=== PATIENT | male | born 1970 | race Caucasian/White ===

== ENCOUNTER 2020-04-08 11:52 | Inpatient (IN) | payer MEDICAID ==
[~2020-04-08] VITALS: Ht 180.3 cm; Wt 51.4 kg
[2020-04-08 13:39] LABS: BASOPHILS % (AUTO) 0.5 % (0-1); EOSINOPHILS # (AUTO) 0.1 X10'3 (0-0.9); EOSINOPHILS % (AUTO) 1.6 % (0-6); HEMATOCRIT 45.5 % (42.0-52.0); HEMOGLOBIN 15.2 g/dl (14.0-17.9); LYMPHOCYTES % (AUTO) 24.2 % (21-51); MEAN CORPUSCULAR HEMOGLOBIN 30.4 PG (27.0-31.0); MEAN CORPUSCULAR HGB CONC 33.5 g/dL (33.0-36.5); MEAN CORPUSCULAR VOLUME 90.7 FL (78-98); MEAN PLATELET VOLUME 8.3 FL (7.4-10.4); MONOCYTES # (AUTO) 0.7 X10'3 (0-0.9); MONOCYTES % (AUTO) 8.3 % (2-12); NEUTROPHILS # (AUTO) 5.5 X10'3 (1.8-7.7); NEUTROPHILS % (AUTO) 65.4 % (42-75); PLATELET COUNT 346 X10'3 (140-440); RED BLOOD COUNT 5.01 X10'6 (4.70-6.10); WHITE BLOOD COUNT 8.4 X10'3 (4.5-11.0)
[2020-04-08 13:54] LABS: ALANINE AMINOTRANSFERASE 143 U/L (12-78); ALKALINE PHOSPHATASE 231 IU/L (46-116); ANION GAP 14 (8-16); ASPARTATE AMINO TRANSFERASE 75 U/L (10-37); BILIRUBIN,TOTAL 2.3 MG/DL (0.1-1.0); BLOOD UREA NITROGEN 29 MG/DL (7-18); CALCIUM 10.1 MG/DL (8.5-10.1); CHLORIDE 100 MMOL/L (99-107); CREATININE 1.32 MG/DL (0.60-1.10); GLUCOSE 121 MG/DL (70-104); LIPASE 1322 U/L (73-393); POTASSIUM 3.5 MMOL/L (3.5-5.1); SODIUM 138 MMOL/L (135-145); TOTAL CARBON DIOXIDE 24.5 MMOL/L (24-32); TOTAL PROTEIN 8.2 G/DL (6.4-8.2); eGFR 57 ML/MIN
[2020-04-08] MEDS ORDERED: normal saline 1000ml 1,000 ML IV ONE (15:50)
[2020-04-08] MEDS ORDERED: iohexol 300mg/ml 100ml inj. ONE (16:16)
--- NOTE | 2020-04-08 16:17 | NUR ---
Per Judith, GI Lab, pt slated for scope in AM. Need PTT results. New orders received from [facility].
[2020-04-08] MEDS ORDERED: potassium Cl 20 mEq SR tablet PO PRN ×2 (16:50)
[2020-04-08] MEDS ORDERED: acetaminophen 325mg tablet PO PRN (16:50)
[2020-04-08] MEDS ORDERED: morphine 2 MG/ML inj. syringe IV PRN (16:50)
[2020-04-08] MEDS ORDERED: magnesium 2GM in 50ml NS 50 ML IV PRN (16:50)
[2020-04-08] MEDS ORDERED: potassium Cl 40MEQ/1/2NS 520ml 520 ML IV PRN (16:50)
[2020-04-08] MEDS ORDERED: magnesium 4gm in 100ml NS 100 ML IV PRN (16:50)
[2020-04-08] MEDS ORDERED: magnesium Cl slow-release 64mg tablet PO PRN (16:50)
[2020-04-08] MEDS ORDERED: ondansetron/PF 4mg/2ml inj IV PRN (16:50)
[2020-04-08] MEDS ORDERED: NO HOME MEDS (17:07)
[2020-04-08 17:09] LABS: CLARITY,URINE CLOUDY (Clear); GLUCOSE, URINE 100 mg/dl (Neg); KETONES,URINE TRACE mg/dl (Neg); LEUKOCYTE ESTERASE ,URINE NEGATIVE (Neg); NITRITES, URINE NEGATIVE (Neg); OCCULT BLOOD,URINE NEGATIVE (Neg); PH,URINE 5.5 (4.8-8.0); PROTEIN,URINE >=300 mg/dl (Neg); UROBILINOGEN,URINE >=8.0 E.U/dL (0.2-1.0)
[2020-04-08 17:16] LABS: UA COLLECTION TYPE CLN CATCH MIDSTREAM
[2020-04-08 17:17] LABS: COLOR,URINE ORANGE (Yellow)
[2020-04-08 17:18] LABS: CAL OXALATE CRYSTALS 4+ /HPF (NEGATIVE)
[2020-04-08 17:19] LABS: BACTERIA,URINE NONE SEEN /HPF (Neg); COARSE GRANULAR CAST 0-3 /LPF (NEGATIVE); MUCUS STRANDS MANY /LPF (Neg); RBC,URINE NONE SEEN /HPF (0-2); SQUAMOUS EPITHELIAL CELL,UR FEW /LPF (FEW); WBC,URINE 0-4 /HPF (0-4)
[2020-04-08 17:20] LABS: CELLULAR CAST 0-4 /LPF (NEGATIVE)
[2020-04-08 17:51] LABS: PARTIAL THROMBOPLASTIN TIME 21 SECONDS (22-32)
--- NOTE | 2020-04-08 17:54 | NUR ---
Belongings: jacket, shirt, hant, neckscarf, shoe, socks, undies, glasses, cell phone & yard clerk, [employer] laptop w/ power supply.
[2020-04-08] MEDS: normal saline 1000ml 1,000 ML IV SCH (17:57)
[2020-04-08 19:00] VITALS: BP 140/75
[2020-04-08] MEDS: K and/or MAG REPLACEMENT MC SCH (20:00)
[2020-04-09] VITALS (40 sets, daily range): BP systolic 111–146; BP diastolic 71–91
[2020-04-09] MEDS: normal saline 1000ml 1,000 ML IV SCH ×4 (02:50→19:11)
--- NOTE | 2020-04-09 06:26 | NUR ---
Problems reprioritized. Patient report given, questions answered & plan of care reviewed with Bailey BAH. Addendum: 04/09/20 at 0626 by May Chen RN Amended: Links added.
--- NOTE | 2020-04-09 06:30 | NUR ---
Patient in room [facility]. I have received report from May BAH, and had the opportunity to ask questions and assume patient care.
[2020-04-09 07:01] LABS: BASOPHILS % (AUTO) 0.4 % (0-1); EOSINOPHILS # (AUTO) 0.1 X10'3 (0-0.9); EOSINOPHILS % (AUTO) 1.9 % (0-6); HEMATOCRIT 34.6 % (42.0-52.0); HEMOGLOBIN 11.7 g/dl (14.0-17.9); LYMPHOCYTES # (AUTO) 1.9 X10'3 (1.1-4.8); LYMPHOCYTES % (AUTO) 26.2 % (21-51); MEAN CORPUSCULAR HEMOGLOBIN 30.9 PG (27.0-31.0); MEAN CORPUSCULAR HGB CONC 33.9 g/dL (33.0-36.5); MEAN CORPUSCULAR VOLUME 91.2 FL (78-98); MEAN PLATELET VOLUME 8.8 FL (7.4-10.4); MONOCYTES # (AUTO) 0.7 X10'3 (0-0.9); MONOCYTES % (AUTO) 9.4 % (2-12); NEUTROPHILS # (AUTO) 4.4 X10'3 (1.8-7.7); NEUTROPHILS % (AUTO) 62.1 % (42-75); PLATELET COUNT 261 X10'3 (140-440); RED CELL DISTRIBUTION WIDTH 13.2 % (11.5-14.5); WHITE BLOOD COUNT 7.1 X10'3 (4.5-11.0)
[2020-04-09 07:33] LABS: ALBUMIN 2.8 G/DL (3.4-5.0); ANION GAP 13 (8-16); BLOOD UREA NITROGEN 19 MG/DL (7-18); BUN/CREATININE RATIO 22.6 (5.4-32.0); CALCIUM 8.6 MG/DL (8.5-10.1); CHLORIDE 107 MMOL/L (99-107); CREATININE 0.84 MG/DL (0.60-1.10); GLUCOSE 83 MG/DL (70-104); MAGNESIUM 1.9 MG/DL (1.5-2.4); POTASSIUM 3.8 MMOL/L (3.5-5.1); SODIUM 142 MMOL/L (135-145); TOTAL CARBON DIOXIDE 21.7 MMOL/L (24-32); eGFR > 90 ML/MIN
[2020-04-09] MEDS ORDERED: MIDAZolam 5mg/5ml vial ONE (09:13)
[2020-04-09] MEDS ORDERED: LIDOcaine Viscous 15ml cup ONE (09:13)
[2020-04-09] MEDS ORDERED: fentaNYL/PF 50MCG/1 ML 2ML syringe ONE ×2 (09:13→14:58)
--- NOTE | 2020-04-09 09:30 | NUR ---
to GI lab via
--- NOTE | 2020-04-09 12:20 | NUR ---
Returned from GI lab. awake, alert, denies pain, VSS
--- NOTE | 2020-04-09 14:30 | NUR ---
To IR for pancreatic biopsy
[2020-04-09] MEDS ORDERED: midazolam 2 mg/2 ml injection ONE (14:58)
--- NOTE | 2020-04-09 15:10 | NUR ---
Malnutrition consult. Per H&P patient presented to ED for evaluation of esophageal pressure, states this has been an issue since december and has had to induce vomiting to relieve pressure. Reports weight loss. Pt is pending a biopsy. Lipase is elevated. Met with patient at beside, reports UBW between 155-160 lbs and current weight of 115 lbs, this would be a 40 lb loss in three months (-24% of body weight). Pt severely malnourished with visible fat and muscle wasting. Pt was given coupons for ensure supplement and written education handout for increasing calories for weight gain and to prevent further weight loss. Given RD contact information. Will continue to follow and provide recommendations as needed based on patient's course of care. Recommend: 1. advance diet as medically indicated, may benefit from full liquids with esophageal mass 2. When diet is advanced recommend ensure enlive 3. bowel care as needed 4. weight per rx Addendum: 04/09/20 at [address] Amended: Links added.
[2020-04-09] MEDS ORDERED: gelatin sponge, absorbable (Gelfoam 12-7MM) sponge TP ONE (16:30)
--- NOTE | 2020-04-09 17:00 | NUR ---
Returned to 354C from IR. In no distress, awake and alert. Denies pain. VSS. No bleeding from IR biopsy site.
--- NOTE | 2020-04-09 18:00 | NUR ---
Problems reprioritized. Patient report given, questions answered & plan of care reviewed with May BAH.
[2020-04-09] MEDS: pantoprazole 40 MG vial IV SCH ×2 (18:58→19:11)
[2020-04-09] MEDS: K and/or MAG REPLACEMENT MC SCH ×2 (18:59→20:00)
[2020-04-10] VITALS: BP 134/76
--- NOTE | 2020-04-10 06:20 | NUR ---
Patient in room [facility]. I have received report from May RN, and had the opportunity to ask questions and assume patient care. Pt requested pain med. Per May pt refused IV Morphine stating his pain wasn't bad enough for Morphine. Pt requests ice chips. Current order is NPO.
--- NOTE | 2020-04-10 06:36 | NUR ---
Problems reprioritized. Patient report given, questions answered & plan of care reviewed with Vandana BAH. Pt stated that he was uncomfortable and would like to try pain meds. Pt informed that he does have IV morphine available and stated that his pain is not that severe and doesn't want IV morphine. He stated that he will let us know if his pain gets worse. Addendum: 04/10/20 at 0640 by May Chen RN Amended: Links added.
[2020-04-10 06:50] LABS: ALBUMIN 2.8 G/DL (3.4-5.0); ANION GAP 14 (8-16); BASOPHILS % (AUTO) 0.6 % (0-1); BLOOD UREA NITROGEN 13 MG/DL (7-18); BUN/CREATININE RATIO 15.5 (5.4-32.0); CALCIUM 8.8 MG/DL (8.5-10.1); CHLORIDE 107 MMOL/L (99-107); CREATININE 0.84 MG/DL (0.60-1.10); EOSINOPHILS # (AUTO) 0.1 X10'3 (0-0.9); EOSINOPHILS % (AUTO) 1.6 % (0-6); GLUCOSE 61 MG/DL (70-104); HEMATOCRIT 32.5 % (42.0-52.0); HEMOGLOBIN 11.2 g/dl (14.0-17.9); LYMPHOCYTES # (AUTO) 1.4 X10'3 (1.1-4.8); LYMPHOCYTES % (AUTO) 20.6 % (21-51); MAGNESIUM 1.7 MG/DL (1.5-2.4); MEAN CORPUSCULAR HEMOGLOBIN 31.5 PG (27.0-31.0); MEAN CORPUSCULAR HGB CONC 34.4 g/dL (33.0-36.5); MEAN CORPUSCULAR VOLUME 91.8 FL (78-98); MEAN PLATELET VOLUME 8.8 FL (7.4-10.4); MONOCYTES # (AUTO) 0.6 X10'3 (0-0.9); MONOCYTES % (AUTO) 8.4 % (2-12); NEUTROPHILS # (AUTO) 4.8 X10'3 (1.8-7.7); NEUTROPHILS % (AUTO) 68.8 % (42-75); PLATELET COUNT 243 X10'3 (140-440); POTASSIUM 3.9 MMOL/L (3.5-5.1); RED BLOOD COUNT 3.54 X10'6 (4.70-6.10); RED CELL DISTRIBUTION WIDTH 12.7 % (11.5-14.5); SODIUM 141 MMOL/L (135-145); TOTAL CARBON DIOXIDE 19.6 MMOL/L (24-32); WHITE BLOOD COUNT 6.9 X10'3 (4.5-11.0); eGFR > 90 ML/MIN
[2020-04-10 07:37] VITALS: BP 110/58
[2020-04-10] MEDS: dextrose 5%-normal saline 1,000 ML IV SCH ×3 (07:50→20:19)
[2020-04-10] MEDS: K and/or MAG REPLACEMENT MC SCH ×2 (08:00→20:00)
[2020-04-10] MEDS: pantoprazole 40 MG vial IV SCH ×2 (10:14→20:00)
[2020-04-10 12:10] VITALS: BP 111/73
--- NOTE | 2020-04-10 13:31 | NUR ---
Pt submitted written permission to have his Medical Advocate/Scrap Baller/POA be his S.O. "Cindy Tovar" Pt's privacy 'code' is "Yecenia [employer] Cat". Advanced Directive packet provided to pt. Cindy asked questions while speaking to pt on his phone, phone was placed on speaker. Pt/Cindy were instructed that Clear Liquids will be provided and if pt tolerates them well he might be discharged home per Dr. Mauricio. Pathology report likely to be read next week. Cindy stated that she and the pt decided they want to be admitted to [facility]. Pt will f/u with PMD on , 04/15/2020. Pt and Cindy verbalized understanding of POC per Dr. Mauricio's bedside rounding.
--- NOTE | 2020-04-10 14:00 | NUR ---
Patient in room [facility]. I have received report from Vandana BAH and had the opportunity to ask questions and assume patient care. Addendum: 04/10/20 at 1928 by Noni Hidalgo RN Amended: Links added.
--- NOTE | 2020-04-10 14:03 | NUR ---
Pt spit up what he calls "plegm" 400cc of watery,foamy, bloody (pedrito blood) expectorate. No cough per pt. Pt states it "seems worse when I get PPI". Pt stated he "always" has the watery/foamy "phlegm" at home, but "it's bloody" since the endoscopy yesterday. OLVIN Cheney aware.
--- NOTE | 2020-04-10 14:30 | NUR ---
Pt. awake sitting up in bed looking at his cell phone. Pt. A & O and denies c/o pain at this time. Noticed frothy spit in the emesis base on the bed side table. Upon empting in the toilet, pedrito blood noted in the bottom of the emesis basin. Pt. reports noticing the condition today. No c/o coughing n/v at this time. Call light within reach. Addendum: 04/10/20 at 1933 by Noni Hidalgo RN Amended: Links added.
--- NOTE | 2020-04-10 17:00 | NUR ---
Charge nurse notified Dr. Ceja regarding the pt's spitting status; orders received for pt. to be richardson NPO until further notice from the doctor. Notified the pt. Pt. verbalized understanding. NPO sign posted. Call light in place. Addendum: 04/10/20 at 1936 by Noni Hidalgo RN Amended: Links added.
--- NOTE | 2020-04-10 18:00 | NUR ---
Problems reprioritized. Patient report given, questions answered & plan of care reviewed with Kia BAH. Addendum: 04/10/20 at 1937 by Noni Hidalgo RN Amended: Links added.
--- NOTE | 2020-04-10 18:35 | NUR ---
Patient in room [facility]. I have received report from Noni BAH and had the opportunity to ask questions and assume patient care.
[2020-04-10 19:00] VITALS: BP 129/84
--- NOTE | 2020-04-10 20:30 | NUR ---
Patient refused protonix tonight stating that 'it makes me feel nauseated every time afterwards". Advised patient that antiemetic zofran could be given to counteract the nausea, still, patient stated that he did not want to take it.
--- NOTE | 2020-04-10 21:18 | NUR ---
New order for ativan 05mg q 4hr prn anxiety obtained .
[2020-04-10] MEDS ORDERED: LORazepam 0.5 MG tablet PO PRN (21:20)
[2020-04-11 00:16] VITALS: BP 143/86
[2020-04-11] MEDS: dextrose 5%-normal saline 1,000 ML IV SCH (05:27)
--- NOTE | 2020-04-11 06:20 | NUR ---
Problems reprioritized. Patient report given, questions answered & plan of care reviewed with Jakub BAH.
--- NOTE | 2020-04-11 06:42 | NUR ---
Patient in room [facility]. I have received report from OLVIN Adam and had the opportunity to ask questions and assume patient care.
[2020-04-11 07:04] LABS: BASOPHILS % (AUTO) 0.6 % (0-1); EOSINOPHILS # (AUTO) 0.2 X10'3 (0-0.9); EOSINOPHILS % (AUTO) 2.9 % (0-6); HEMATOCRIT 30.7 % (42.0-52.0); HEMOGLOBIN 10.4 g/dl (14.0-17.9); LYMPHOCYTES # (AUTO) 1.4 X10'3 (1.1-4.8); LYMPHOCYTES % (AUTO) 23.4 % (21-51); MEAN CORPUSCULAR HEMOGLOBIN 30.8 PG (27.0-31.0); MEAN CORPUSCULAR VOLUME 90.5 FL (78-98); MEAN PLATELET VOLUME 8.6 FL (7.4-10.4); MONOCYTES # (AUTO) 0.7 X10'3 (0-0.9); MONOCYTES % (AUTO) 11.4 % (2-12); NEUTROPHILS # (AUTO) 3.8 X10'3 (1.8-7.7); NEUTROPHILS % (AUTO) 61.7 % (42-75); PLATELET COUNT 239 X10'3 (140-440); RED BLOOD COUNT 3.39 X10'6 (4.70-6.10); RED CELL DISTRIBUTION WIDTH 13.1 % (11.5-14.5); WHITE BLOOD COUNT 6.2 X10'3 (4.5-11.0)
[2020-04-11 07:20] LABS: ALBUMIN 2.5 G/DL (3.4-5.0); ANION GAP 11 (8-16); BLOOD UREA NITROGEN 6 MG/DL (7-18); BUN/CREATININE RATIO 6.7 (5.4-32.0); CALCIUM 8.6 MG/DL (8.5-10.1); CHLORIDE 107 MMOL/L (99-107); CREATININE 0.89 MG/DL (0.60-1.10); GLUCOSE 129 MG/DL (70-104); MAGNESIUM 1.6 MG/DL (1.5-2.4); SODIUM 143 MMOL/L (135-145); TOTAL CARBON DIOXIDE 25.4 MMOL/L (24-32); eGFR 90 ML/MIN
[2020-04-11] MEDS: pantoprazole 40 MG vial IV SCH ×2 (07:23→20:00)
--- NOTE | 2020-04-11 07:23 | NUR ---
Patient refuses protonix. Patient states he is aware of what protonix is for and "wishes to decline again" as it makes him too nauseated.
[2020-04-11 07:24] LABS: POTASSIUM 2.9 MMOL/L (3.5-5.1)
--- NOTE | 2020-04-11 07:30 | NUR ---
Dr. Mauricio PAGER ID: [phone] MESSAGE: nehemiah- Da Carrero- Critical K of 2.9. Will replace per protocol- Jakub [id number]
[2020-04-11 08:00] VITALS: BP 130/71
[2020-04-11] MEDS: K and/or MAG REPLACEMENT MC SCH ×2 (08:00→20:00)
[2020-04-11] MEDS: potassium Cl 40MEQ/1/2NS 520ml 520 ML IV PRN ×2 (08:43→14:43)
--- NOTE | 2020-04-11 10:13 | NUR ---
Patient's spouse Cindy called stating patient will need to be dc'd today as he has an appointment at a cancer center in [place] and will need to start making the drive tomorrow. barrel maker, Vandana also spoke to Cindy and let her know that if patient is not discharged by MD then the patient would be leaving AMA if he were to leave. Let Cindy and patient know that it is not known at this time if patient will be dc'd at this time as he is still NPO and K is 2.9 which is being replaced. Cindy stated that if he is not discharged then he "will be leaving today one way or another." page sent to Dr. Mauricio. PAGER ID: [phone] MESSAGE: Kikoc- Yuriy Carrero- patient and wanting to dc today if possible as he has an appointment for cancer center in [place] wed and will be driving. Currently still NPO. - Jakub [id number]
--- NOTE | 2020-04-11 10:57 | NUR ---
Dr. Mauricio in to see patient. Plan is for patient to dc but will need K replacement. Patient currently has K replacement IV infusing and wanting to take PO for next dose. Dr. Mauricio ok for patient to take PO form now while K IV infusing.
--- NOTE | 2020-04-11 11:21 | NUR ---
Patient has not changed his mind and does not want to take KDUR PO and would like to complete IV K replacement per protocol. Will continue to monitor.
--- NOTE | 2020-04-11 11:59 | NUR ---
Dr. Mauricio acknowledges she is aware patient is still NPO due to having bloody emesis yesterday while on CL liquids when asked about patient current NPO status since he is being dc today. Dr Mauricio stated "patient really should be NPO but when he is home he can have clears as he can tolerate." Dr. Mauricio paged to clarify this. PAGER ID: [phone] MESSAGE: Da Santana- please clarify npo status. you stated patient should npo but when home ok to have CL as tolerated? or do you want him to start CL now? Thank you- Jakub [id number]
--- NOTE | 2020-04-11 12:10 | NUR ---
Received return call from Dr. Mauricio and she states, " yes the plan is for patient to be NPO but when he goes home he will drink." Patient aware he can have CL diet as tolerated when dc'd. Will DC patient once patient has K replaced. Will continue to monitor.
[2020-04-11 12:11] LABS: ALANINE AMINOTRANSFERASE 97 U/L (12-78); ALBUMIN/GLOBULIN RATIO 0.8 (1.1-1.5); ALKALINE PHOSPHATASE 201 IU/L (46-116); ASPARTATE AMINO TRANSFERASE 66 U/L (10-37); BILIRUBIN,DIRECT 1.8 MG/DL (0-0.3); BILIRUBIN,TOTAL 2.5 MG/DL (0.1-1.0); TOTAL PROTEIN 5.6 G/DL (6.4-8.2)
[2020-04-11 12:15] VITALS: BP 131/75
--- NOTE | 2020-04-11 18:23 | NUR ---
Problems reprioritized. Patient report given, questions answered & plan of care reviewed with OLVIN Adam.
--- NOTE | 2020-04-11 18:30 | NUR ---
Patient in room [facility]. I have received report from Jakub Liriano and had the opportunity to ask questions and assume patient care.
[2020-04-11 19:00] VITALS: BP 149/92
[2020-04-11 19:43] LABS: ALANINE AMINOTRANSFERASE 112 U/L (12-78); ALBUMIN 2.8 G/DL (3.4-5.0); ALBUMIN/GLOBULIN RATIO 0.8 (1.1-1.5); ALKALINE PHOSPHATASE 236 IU/L (46-116); ASPARTATE AMINO TRANSFERASE 61 U/L (10-37); BILIRUBIN,DIRECT 1.8 MG/DL (0-0.3); BILIRUBIN,TOTAL 2.6 MG/DL (0.1-1.0); POTASSIUM 3.6 MMOL/L (3.5-5.1); TOTAL PROTEIN 6.1 G/DL (6.4-8.2)
--- NOTE | 2020-04-11 20:02 | NUR ---
Most recent potassium lab back at 3.6. Patient does not want to finish infusion of around 75cc and is packng up belongiiiings to leave right now.
--- NOTE | 2020-04-11 20:30 | NUR ---
PIV dc'd with cannula intact and patient taken down to front lobby via w/c with all belongings and discharge paperwork. Patients' SO awaiting to drive patient home via private motor vehicle. Patient in no distress.
== END 2020-04-11 20:30 | disposition home or self-care (01) | DRG 243 ==
LOC: ER 11:53 → UNDOADMIN 16:50 → ED HOLD 16:50 → SUR 3N 19:28 → ED HOLD 19:28
PROVIDERS: ADMIT Internal Medicine; ATTEND Internal Medicine
PROC: BW251ZZ Computerized Tomography (CT Scan) of Chest, Abdomen and Pelvis using Low Osmolar Contrast (ICD-10-PCS; 2020-04-08)
PROC: 0D758ZZ Dilation of Esophagus, Via Natural or Artificial Opening Endoscopic (ICD-10-PCS; 2020-04-09)
PROC: 0DB58ZX Excision of Esophagus, Via Natural or Artificial Opening Endoscopic, Diagnostic (ICD-10-PCS; 2020-04-09)
PROC: 0FBG3ZX Excision of Pancreas, Percutaneous Approach, Diagnostic (ICD-10-PCS; principal; 2020-04-11)
DX: K22.2 Esophageal obstruction (principal); K22.9 Disease of esophagus, unspecified; D63.8 Anemia in other chronic diseases classified elsewhere; E43 Unspecified severe protein-calorie malnutrition; K82.1 Hydrops of gallbladder; K86.9 Disease of pancreas, unspecified; K92.2 Gastrointestinal hemorrhage, unspecified; R13.10 Dysphagia, unspecified; K85.90 Acute pancreatitis without necrosis or infection, unspecified; N17.9 Acute kidney failure, unspecified; K21.9 Gastro-esophageal reflux disease without esophagitis; R59.9 Enlarged lymph nodes, unspecified; Z68.1 Body mass index [BMI] 19.9 or less, adult; E87.6 Hypokalemia
CPT/HCPCS: 36415; 43235; 43239; 49180; 71260; 74176; 74177; 76700; 76705; 77012; 80048; 80053; 80076; 81001; 83690; 83735; 84132; 84443; 85025; 85730; 87081; 93005; 99152; 99153; 99285; A4620; C9113; G0378; J2250; J3010; J3480; J7030; J7040; J7042; Q9967